=== PATIENT | female | born 1965 | race Hispanic/Latino ===

== ENCOUNTER 2017-09-10 18:24 | Emergency (ER) | payer OTHER ==
[2017-09-10] MEDS ORDERED: KETOROLAC TROMETHAMINE 30MG/ML ONE (19:37)
== END 2017-09-10 20:00 | disposition home or self-care (01) ==
LOC: EDH 18:24
DX: S30.0XXA Contusion of lower back and pelvis, initial encounter (principal); S70.01XA Contusion of right hip, initial encounter; S90.31XA Contusion of right foot, initial encounter; Z72.0 Tobacco use; W18.39XA Other fall on same level, initial encounter; Y93.01 Activity, walking, marching and hiking; Y92.89 Other specified places as the place of occurrence of the external cause; Y99.8 Other external cause status
CPT/HCPCS: 72100; 73521; 73600; 96372; 99284; J1885

== ENCOUNTER 2018-10-09 20:55 | Emergency (ER) | payer OTHER ==
[2018-10-09 21:12] LABS: BASOPHILS % (AUTO) 1.5 % (0.0-5.0); EOSINOPHILS % (AUTO) 2.6 % (0.0-8.0); HEMATOCRIT 40.5 % (36-48); LYMPHOCYTES % (AUTO) 37.1 % (21.0-51.0); MEAN CORPUSCULAR HEMOGLOBIN 30.1 pg (27.0-33.0); MEAN CORPUSCULAR HGB CONC 33.4 g/dL (32.0-36.0); MEAN CORPUSCULAR VOLUME 90.1 fL (79-99); MONOCYTES % (AUTO) 9.3 % (3.0-13.0); NEUTROPHILS % (AUTO) 49.5 % (40.0-77.0); PLATELET COUNT (AUTO) 189 K/uL (130-400); RED CELL DISTRIBUTION WIDTH 13.9 % (11.0-15.5); WHITE BLOOD COUNT (AUTO) 7.2 K/uL (4.8-10.8)
[2018-10-09 21:22] LABS: CREATININE 0.7 mg/dL (0.5-1.5); POTASSIUM 3.7 mmol/L (3.5-5.1)
[2018-10-09 21:26] LABS: ALBUMIN 3.6 g/dL (3.5-5.0); BILIRUBIN,TOTAL 0.5 mg/dL (0.2-1.0); TOTAL PROTEIN, SERUM 7.5 g/dL (6.0-8.3)
== END 2018-10-09 23:33 | disposition home or self-care (01) ==
LOC: EDH 20:55
DX: F43.0 Acute stress reaction (principal); R00.2 Palpitations; S33.5XXA Sprain of ligaments of lumbar spine, initial encounter; M79.671 Pain in right foot; W18.39XA Other fall on same level, initial encounter; Y93.89 Activity, other specified; Y92.89 Other specified places as the place of occurrence of the external cause; Y99.8 Other external cause status
CPT/HCPCS: 36415; 72100; 73630; 80053; 84484; 85025; 93005

== ENCOUNTER 2019-04-27 11:13 | Emergency (ER) | payer OTHER ==
[2019-04-27 12:55] LABS: APPEARANCE,URINE Clear (CLEAR); BILIRUBIN,URINE Negative (NEGATIVE); COLOR,URINE Yellow (YELLOW); GLUCOSE, URINE (UA) Negative (NEGATIVE); KETONES,URINE Negative (NEGATIVE); LEUKOCYTE ESTERASE ,URINE Trace (NEGATIVE); NITRATE,URINE Negative (NEGATIVE); OCCULT BLOOD,URINE Negative (NEGATIVE); PROTEIN,URINE Negative (NEGATIVE); UROBILINOGEN,URINE 0.2 mg/dL (0.2-1.0)
[2019-04-27 13:02] LABS: BACTERIA,URINE Rare /HPF (None Seen); RBC,URINE 0-1 /HPF (0-1); SQUAMOUS EPITHELIAL CELL,UR Few /HPF (0-2)
[2019-04-27 13:07] LABS: CREATININE 0.6 mg/dL (0.5-1.5)
[2019-04-27 13:08] LABS: BASOPHILS % (AUTO) 0.8 % (0.0-5.0); EOSINOPHILS % (AUTO) 2.4 % (0.0-8.0); HEMATOCRIT 41.4 % (36-48); MEAN CORPUSCULAR HEMOGLOBIN 29.5 pg (27.0-33.0); MEAN CORPUSCULAR HGB CONC 32.4 g/dL (32.0-36.0); MONOCYTES % (AUTO) 4.8 % (3.0-13.0); NEUTROPHILS % (AUTO) 57.7 % (40.0-77.0); PLATELET COUNT (AUTO) 183 K/uL (130-400); RED BLOOD CELL COUNT(AUTO) 4.55 MIL/uL (4.00-5.50); RED CELL DISTRIBUTION WIDTH 13.7 % (11.0-15.5)
[2019-04-27] MEDS ORDERED: SODIUM CHLORIDE 0.9% 1000ML 1,000 ML IV ONE (16:47)
== END 2019-04-27 14:52 | disposition home or self-care (01) ==
LOC: EDH 11:13
DX: G51.0 Bell's palsy (principal); Z72.0 Tobacco use
CPT/HCPCS: 36415; 70450; 74176; 80048; 81001; 85025; 93005; J7030

== ENCOUNTER 2019-05-08 17:02 | Emergency (ER) | payer OTHER | END 2019-05-08 17:43 | disposition home or self-care (01) | LOC: EDH 17:02 | DX: R25.3 Fasciculation (principal) | CPT/HCPCS: 99281 ==

== ENCOUNTER 2023-06-04 22:16 | Emergency (ER) | payer OTHER ==
[~2023-06-04] VITALS: Ht 157.5 cm; Wt 54.4 kg
[2023-06-04 22:40] LABS: BASOPHILS % (AUTO) 0.8 % (0.0-5.0); EOSINOPHILS # (AUTO) 0.11 K/uL (0.00-0.70); EOSINOPHILS % (AUTO) 0.8 % (0.0-8.0); IMMATURE GRANULOCYTE ABSOLUTE 0.06 K/uL (0-1); LYMPHOCYTES # (AUTO) 1.8 K/uL (1.0-4.8); LYMPHOCYTES % (AUTO) 13.9 % (21.0-51.0); MEAN CORPUSCULAR HEMOGLOBIN 30.9 pg (27.0-33.0); MEAN CORPUSCULAR HGB CONC 32.8 g/dL (32.0-36.0); MEAN CORPUSCULAR VOLUME 94.4 fL (79-99); MONOCYTES # (AUTO) 0.5 K/uL (0.1-1.0); MONOCYTES % (AUTO) 3.7 % (3.0-13.0); NEUTROPHILS # (AUTO) 10.5 K/uL (1.8-7.7); NEUTROPHILS % (AUTO) 80.3 % (40.0-77.0); PLATELET COUNT (AUTO) 209 K/uL (130-400); RED BLOOD CELL COUNT(AUTO) 4.98 MIL/uL (4.00-5.50); RED CELL DISTRIBUTION WIDTH 12.9 % (11.0-15.5); WHITE BLOOD COUNT (AUTO) 13.1 K/uL (4.8-10.8)
[2023-06-04 22:48] LABS: SARS-CoV-2, RNA, NAAT NEGATIVE SARS CoV-2 (NEGATIVE)
[2023-06-04 22:48] LABS: APPEARANCE,URINE CLEAR (CLEAR); BILIRUBIN,URINE NEGATIVE (NEGATIVE); COLOR,URINE LIGHT-YELLOW (YELLOW); GLUCOSE, URINE (UA) NEGATIVE (NEGATIVE); KETONES,URINE NEGATIVE (NEGATIVE); LEUKOCYTE ESTERASE ,URINE 25 Leu/uL (NEGATIVE); NITRATE,URINE NEGATIVE (NEGATIVE); OCCULT BLOOD,URINE SMALL (NEGATIVE); PH,URINE 6.5 (5.0-8.0); PROTEIN,URINE NEGATIVE (NEGATIVE); UROBILINOGEN,URINE 0.2 mg/dL (0.2-1.0)
[2023-06-04 22:49] LABS: ADD UA MICROSCOPIC YES
[2023-06-04 22:53] LABS: INFLUENZA TYPE A Negative For Type A (NEGATIVE); INFLUENZA TYPE B Negative For Type B (NEGATIVE)
[2023-06-04 22:53] LABS: BACTERIA,URINE RARE /HPF (None Seen); MUCUS,URINE RARE LPF (None Seen); SQUAMOUS EPITHELIAL CELL,UR RARE /HPF (0-2)
[2023-06-04 22:54] LABS: CREATININE 0.8 mg/dL (0.5-1.5); POTASSIUM 3.7 mmol/L (3.5-5.1)
[2023-06-04 22:57] LABS: RAPID GROUP A STREP positive (NEGATIVE)
[2023-06-04 23:00] LABS: ALBUMIN 3.8 g/dL (3.5-5.0); BILIRUBIN,TOTAL 0.3 mg/dL (0.2-1.0); TOTAL PROTEIN, SERUM 7.9 g/dL (6.0-8.3)
[2023-06-05] MEDS: SOLU-MEDROL 125MG VIAL IM ONE (00:11)
[2023-06-05] MEDS: KETOROLAC 30MG VIAL (30MG/ML) IM ONE (00:11)
[2023-06-05] MEDS: ONDANSETRON 4MG TABLET PO ONE (00:12)
[2023-06-05] MEDS ORDERED: POLY17PO4 PO (00:14)
[2023-06-05] MEDS ORDERED: PENI500T2 PO (00:14)
[2023-06-05] MEDS ORDERED: DOCU-116 PO (00:14)
[2023-06-05 01:02] VITALS: BP 156/82; PULSE 80; RESP 18; O2SAT 97
== END 2023-06-05 01:04 | disposition home or self-care (01) ==
LOC: EDH 22:16
DX: R10.9 Unspecified abdominal pain (principal); K59.00 Constipation, unspecified; J02.0 Streptococcal pharyngitis; D72.829 Elevated white blood cell count, unspecified; F17.200 Nicotine dependence, unspecified, uncomplicated; Z13.89 Encounter for screening for other disorder; Z20.822 Contact with and (suspected) exposure to COVID-19; Z79.899 Other long term (current) drug therapy; Z98.890 Other specified postprocedural states
CPT/HCPCS: 99285; 74176; 71045; 87635; 84484; 80053; 83880; 83690; 85025; 87880; 87804 ×2; 83605; 81001; 36415; 96372 ×2; Q0162; J2930; J1885